=== PATIENT | female | born 1960 | race Caucasian/White ===

== ENCOUNTER 2016-11-04 14:27 | Emergency (ER) | payer BC ==
[~2016-11-04] VITALS: Ht 165.1 cm; Wt 70.3 kg
[~2016-11-04 14:27] MED LIST: ACETAMINOPHEN-H1 TA2 PO; ADVAIR 250/501 EA INH; ALBUTEROL2.5 MG/0.5 INH; ALPRAZOLAM0.5 M3 PO; AMBIEN10 M1 PO; CARDIZEM120 MG PO; CELEXA20 MG PO; CIPRO500 MG PO; CLONIDINE0.2 MG PO; COREG CR40 MG PO; COREG12.5 M1 PO; COZAAR100 MG PO; COZAAR25 MG PO; DELTASONE20 M1 PO; DIFLUCAN100 MG PO; DOXYCYCLINE100 M3 PO; DUONEB 3 MG/3 ML3 M1 INH; ECOTRIN325 MG PO; HYDR12.5C PO; HYDR25T PO; LISINOPRIL HCTZ1 TA1 PO; LOSARTAN POTASS50 M1 PO; LOVASTATIN20 MG PO; NATURE'S BLEND F1 MG PO; NORMODYNE,TRAN200 MG PO; NORVASC10 MG PO; PERCOCET 325 MG1 TA2 PO; PERCOCET 325 MG1 TA3 PO; PRAVASTATIN SOD20 MG PO; PREDNISONE10 MG PO; PULMICORT RESP0.5 M1 INH; RESTORIL15 MG PO; VICO75300 PO; VITAMIN D50000 I1 PO; VITAMIN D50000 I3 PO; XANAX0.5 MG PO; XANAX1 MG PO; ZANTAC150 MG PO; ZITHROMAX250 MG PO
[2016-11-04 14:34] VITALS: BP 160/134
[2016-11-04 15:08] LABS: BASO # 0.1 10*3/uL (0.0-0.1); BASO % 0.5 % (0.0-1.0); EOS # 0.2 10*3/uL (0.0-0.4); EOS % 1.9 % (1.0-4.0); HEMATOCRIT 49.3 % (37.0-47.0); LYMPH # 3.8 10*3/uL (1.3-4.4); LYMPH % 35.3 % (27.0-41.0); MEAN CELL VOLUME 88.8 fl (81.0-99.0); MEAN CORPUSCULAR HGB 30.6 pg (27.0-31.0); MEAN CORPUSCULAR HGB CONC 34.5 g/dl (33.0-37.0); MEAN PLATELET VOLUME 8.9 fl (9.6-12.3); MONO # 0.6 10*3/uL (0.1-1.0); MONO % 5.4 % (3.0-9.0); NEUT # 6.1 10*3/uL (2.3-7.9); NEUT % 56.5 % (47.0-73.0); PLATELET COUNT AUTOMATED 347 10*3/uL (130-400); RED BLOOD COUNT 5.55 10*6/uL (4.10-5.10); WHITE BLOOD COUNT 10.7 10*3/uL (4.8-10.8)
[2016-11-04 15:17] LABS: PROTHROMBIN TIME 10.5 SECONDS (9.0-12.4)
[2016-11-04 15:27] LABS: ALBUMIN 4.3 gm/dl (3.1-4.5); ALKALINE PHOSPHATASE 60 U/L (45-117); BILIRUBIN, TOTAL 0.4 mg/dl (0.2-1.0); BUN 7 mg/dl (7-24); CARBON DIOXIDE 24 mmol/L (21-32); CHLORIDE 107 mmol/L (98-107); EST GLOM FILT AFRICAN AMERICAN > 60 ml/min; GLUCOSE 70 mg/dL (65-99); POTASSIUM 4.3 mmol/L (3.5-5.1); SGOT/AST 22 IU/L (3-35); SGPT/ALT 20 U/L (12-78); SODIUM 141 mmol/L (136-145); TOTAL PROTEIN 8.3 gm/dL (6.4-8.2)
[2016-11-04 15:28] LABS: TROPONIN I < 0.015 ng/ml (<0.045)
== END 2016-11-04 17:21 | disposition home or self-care (01) ==
LOC: ED 14:27
PROVIDERS: Physician Assistant
DX: R07.89 Other chest pain (principal); M25.512 Pain in left shoulder; R51 Headache; R03.0 Elevated blood-pressure reading, without diagnosis of hypertension; F17.200 Nicotine dependence, unspecified, uncomplicated; Z90.49 Acquired absence of other specified parts of digestive tract; Z98.890 Other specified postprocedural states; Z79.899 Other long term (current) drug therapy; Z79.82 Long term (current) use of aspirin; Z88.8 Allergy status to other drugs, medicaments and biological substances; Z86.73 Personal history of transient ischemic attack (TIA), and cerebral infarction without residual deficits

== ENCOUNTER → 2017-04-13 | Outpatient (CLI) | payer BC ==
[2017-04-13 13:29] LABS: BUN 13 mg/dl (7-24); CHLORIDE 105 mmol/L (98-107); CREATININE 0.73 mg/dL (0.55-1.02); POTASSIUM 4.5 mmol/L (3.5-5.1); SODIUM 141 mmol/L (136-145)
== END | disposition home or self-care (01) ==
LOC: LAB 12:43
PROVIDERS: Obstetrics & Gynecology Gynecologic Oncology
DX: R10.84 Generalized abdominal pain (principal)

== ENCOUNTER 2017-06-05 12:04 | Inpatient (IN) | payer BC ==
[~2017-06-05] VITALS: Ht 165.1 cm; Wt 69.0 kg
--- NOTE | ~2017-06-05 | DS ---
[place], [place] DISCHARGE SUMMARY NAME: [id number] UNIT #: [id number] ROOM: 419 DOCTOR: LATONYA ZHAO MD BIRTHDATE: [birth year] DOS: 06/08/2017 DIAGNOSES: 1. Escherichia coli sepsis. 2. Urinary tract infection with Escherichia coli. 3. Acute hearing loss, will need an audiometric exam as an outpatient. 4. Benign hypertension. 5. Generalized anxiety disorder. 6. 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 7. Major depression, mild, recurrent. 8. Mixed hyperlipidemia. 9. Chronic back pain. 10. Continued nicotine abuse. 11. Primary insomnia. 12. Metabolic encephalopathy. 13. Hypokalemia. DISCHARGE MEDICATIONS: Clonidine 0.1 b.i.d., Coreg 25 b.i.d., amlodipine 5 daily, Zocor 5 daily, Cipro 500 b.i.d., folic acid 1 mg daily, aspirin 325 daily, vitamin D 50,000 once a week, Percocet 7.5 q.i.d., Ambien 10 at bedtime, omeprazole 20 b.i.d., Xanax 1 mg t.i.d. p.r.n. HOSPITAL COURSE: This patient is very well known to us, 57-year-old, comes in with complaints of change in mental status. Please refer to H and P for details. After admission, the patient was ordered urine culture, blood cultures and diagnosed with metabolic encephalopathy from an underlying UTI. She also had acute hearing loss. AudioScope examination of the ears did not show any pathology. The patient's urine culture and blood culture has grown E. coli, which is sensitive to the Rocephin and Levaquin that the patient is already on. The patient is overall stable and is not having any problems. She continues to have the hearing loss, but is able to ambulate without any difficulty and her mental status has improved and is back to the baseline. Labs all within normal limits, except for low potassium of 3.0 today for which the patient is going to receive K-Dur 40 mEq p.o. The patient is stable. I plan to discharge her to home today. A routine culture was ordered for June 08. We will have to wait as an outpatient to see what the culture results are. The patient does not want to stay in the hospital any longer, so we will await the results as an outpatient. [place], [place] DISCHARGE SUMMARY NAME: CECILE BRIZUELA UNIT #: [id number] ROOM: 419 DOCTOR: LATONYA ZHAO MD BIRTHDATE: [birth year] LATONYA ZHAO MD CM:DISCHARG [id number] LATONYA ZHAO MD 06/08/17909 interface
--- NOTE | ~2017-06-05 | PR ---
[place], [place] PROGRESS NOTE NAME: [id number] UNIT #: [id number] ROOM: 419 DOCTOR: LATONYA ZHAO MD BIRTHDATE: [birth year] DOS: 06/08/2017 SUBJECTIVE: The patient is feeling good, has not had any complaints. OBJECTIVE EXAMINATION: GENERAL: The patient is awake and alert and oriented. VITAL SIGNS: Blood pressure is 150/72, pulse of 60, respirations 18, temperature 97.6. LUNGS: Clear. HEART: Regular. ABDOMEN: Obese, soft, nontender. EXTREMITIES: Without any edema. ASSESSMENT AND PLAN: 1. E. coli urinary tract infection with sepsis, bacteremia also of E. coli. The patient is on appropriate antibiotics. Repeat cultures are pending. The patient is clinically stable. White cell count is normal. No fevers and encephalopathy has resolved. So, the plan is to discharge her to home today. Follow up as an outpatient. 2. Acute hearing loss, possibly from sepsis, which needs to be evaluated as an outpatient with audiometric exam. LATONYA ZHAO MD CM:PNTRANS [phone] LATONYA ZHAO MD 06/08/17 1206 interface
--- NOTE | ~2017-06-05 | PR ---
[place], [place] PROGRESS NOTE NAME: CECILE BRIZUELA UNIT #: [id number] ROOM: 419 DOCTOR: LATONYA ZHAO MD BIRTHDATE: [birth year] DOS: 06/07/2017 SUBJECTIVE: The patient is doing fine without any complaints this morning except for the hearing loss, which suddenly happened before the hospitalization. OBJECTIVE: VITAL SIGNS: Pressure is 164/62, pulse of 75, respirations 18, temperature 99.3. LUNGS: Diminished breath sounds. No wheezes, rales or rhonchi heard. HEART: Regular. ABDOMEN: Soft. EXTREMITIES: Without any edema. LABORATORY DATA: Blood cultures, anaerobic shows gram-negative bacilli. Urine culture shows heavy gram-negative bacteria, identification is not available. No other labs available this morning. ASSESSMENT AND PLAN: 1. Sepsis with bacteremia noted. We do need to finalize the antibiotic regimen this morning, add possibly Levaquin to the Rocephin. 2. Metabolic encephalopathy, possibly from the urinary tract infection and sepsis, which is resolved. 3. Benign hypertension, poorly controlled. Norvasc was added in addition to her other medications. 4. Acute hearing loss, unknown etiology. ENT examination was absolutely within normal limits, may require an audiometric exam as an outpatient. LATONYA ZHAO MD CM:PNTRANS 0811 [id number] LATONYA ZHAO MD 06/07/17 1101 interface
--- NOTE | ~2017-06-05 | WRIGHTHP ---
[place], [place] PATIENT HISTORY AND PHYSICAL EXAM NAME: CECILE BRIZUELA [facility] #: [id number] UNIT #: [id number] ROOM: 419 DOCTOR: LATONYA ZHAO MD BIRTHDATE: [birth year] DOS: 06/05/2017 HISTORY OF PRESENT ILLNESS: The patient is 57 years old. The patient was brought in by family members saying that she has been confused, which is a change in mental status. The patient denies having any chest pains, palpitations, shortness of breath. Does not have any fever or chills, does not have any abdominal pain, nausea, any emesis. She was brought to the emergency room where she was evaluated and was found to have UTI and acute kidney injury and was admitted. This morning, the patient is feeling good, does not have any complaints and wants to go home. She denies having any chest pains or palpitations. PAST MEDICAL HISTORY: 1. Generalized anxiety disorder. 2. Mild major depression. 3. Sertoli-Leydig cell tumor removed from the left ovary in February 2017. 4. Benign hypertension. 5. Mixed hyperlipidemia. 6. Chronic back pain. 7. Continued nicotine abuse. MEDICATIONS: The patient currently is on are Xanax 1 mg 3 times a day p.r.n., Elavil 50 at bedtime, aspirin 325 daily, Coreg 25 daily, clonidine 0.2 at bedtime, vitamin D 50,000 once a week, folic acid 1 mg daily, omeprazole 20 b.i.d., Percocet 1 tablet q.i.d. p.r.n., zolpidem 10 at bedtime. SOCIAL HISTORY: Smoker for about half a pack of cigarettes. Denies using any alcohol. Lives at home with her . She does not have any children. PHYSICAL EXAMINATION: GENERAL: The patient is awake and alert and oriented this morning. VITAL SIGNS: Graphic trend shows pressure 167/83, pulse of 86, respirations 20, temperature 98.0. LUNGS: Diminished breath sounds. No wheezes, rales, rhonchi heard. HEART: Regular. ABDOMEN: Obese, soft, nontender. EXTREMITIES: Without any edema. ASSESSMENT AND PLAN: 1. Acute kidney injury, possibly from underlying infection. 2. Metabolic encephalopathy, possibly from urinary tract infection. Urine culture is pending. IV antibiotics have been ordered. 3. Benign hypertension. Readjust antihypertensives to better control the blood pressure. 4. Chronic pain, on Percocet p.r.n. [place], [place] PATIENT HISTORY AND PHYSICAL EXAM NAME: CECILE BRIZUELA UNIT #: [id number] ROOM: [facility] DOCTOR: LATONYA ZHAO MD BIRTHDATE: [birth year] LATONYA ZHAO MD CM:HISPHYS:PATIENT HISTORY AND PHYSICAL EXAMINATION 0945 LATONYA ZHAO MD 06/06/17 1138 interface
--- NOTE | ~2017-06-05 | EKG ---
[place], [place] ELECTROCARDIOGRAM REPORT NAME: CECILE BRIZUELA UNIT #: [id number] ROOM: 419 DOCTOR: KRISS MC,ANGEL BIRTHDATE: [birth year] DOS: 06/05/2017 IMPRESSION: 1. Normal sinus rhythm. 2. Nonspecific ST-T changes. ANGEL MONTERROSO MD CM:EKGRPT:ELECTROCARDIOGRAM REPORT 1530 [id number] ANGEL OMNTERROSO MD
--- NOTE | ~2017-06-05 | CON ---
[place], [place] REPORT OF CONSULTATION NAME: CECILE BRIZUELA UNIT #: [id number] ROOM: 419 DOCTOR: GLORY CODY MD BIRTHDATE: [birth year] DOS: 06/06/2017 HISTORY OF PRESENT ILLNESS: This is a 57-year-old -[place] woman with a history of long-standing hypertension, which at times had not been controlled adequately. She had a couple of admissions in 2014 with uncontrolled hypertension. She has a modest degree of obesity, depression. She has never had any kidney problem previously and had no stroke, diabetes mellitus or heart failure or heart attack. She has had tonsillectomy, appendectomy, back surgery, hemorrhoidectomy and herniorrhaphy x 2. She smokes 1 pack of cigarettes per day. No alcohol use. Lives at home with her . She tells me that yesterday morning she was not feeling quite right and gave her raw eggs to eat, which did not really make sense. She was taken fishing by the family member hoping she will get better and there she felt somewhat tired and got into the truck and took a nap and she was not quite with it either. She has acute loss of hearing on the right side. There has not been any headache, dizziness, weakness, localized dysesthesia of the extremities. She did not pass out and there was no orthopnea or swelling in the lower extremities or chest pain. HOME MEDICATIONS: Include carvedilol 12.5 mg b.i.d., losartan 100 mg daily, amlodipine 10 mg daily, alprazolam 1 mg t.i.d. and Ambien 10 mg at night, oxycodone and hydrochlorothiazide p.r.n., pravastatin 40 mg daily and aspirin 325 mg daily. She also is on clonidine 0.2 mg at night. PHYSICAL EXAMINATION: GENERAL: This is a patient who has hirsutism. She is not anemic. There is no thyromegaly or finger clubbing. VITAL SIGNS: Pulse is regular at 86, blood pressure 167/83, this was the highest blood pressure, lowest was 119/62. NECK: JVP is normal. There is a very faint right carotid bruit and easily audible bruit on the left side. Carotid upstroke is normal. HEART: There is no cardiomegaly. Cardiac auscultation revealed no murmurs or rubs. Excellent pedal pulses and no edema in the lower extremities. RESPIRATORY: She is not tachypneic. Percussion note is normal. Auscultation reveals good breath sounds with hardly any adventitious sounds. ABDOMEN: Supple, nontender. No organomegaly or bruit. Bowel sounds are normal. DIAGNOSTIC STUDIES: An ECG done yesterday evening showed normal sinus rhythm at 90 beats per minute and a normal pattern. Monitor has shown not shown any dysrhythmias. Hemoglobin is 10.3 g/dL and on admission creatinine was 2.98, BUN 43, albumin was 3.0 and this morning creatinine has dropped to 1.62 and BUN 26. Chest x-ray was unremarkable. CT scan of the head did not demonstrate any acute abnormalities. IMPRESSION: [place], [place] REPORT OF CONSULTATION NAME: CECILE BRIZUELA UNIT #: [id number] ROOM: 419 DOCTOR: GLORY CODY MD BIRTHDATE: [birth year] 1. Hypertension. This is well controlled. 2. She did not have any chest pain. 3. She had acute confusional state from which she has recovered completely, but loss of hearing on the right side is of concern and probably a neurological event. 4. She has carotid bruits and I suspect some degree of carotid artery stenosis. 5. Hyperlipidemia back in 2011. She had total cholesterol 332, HDL of 28, triglycerides 580. RECOMMENDATIONS: 1. Carvedilol should be continued. I totally agree with discontinuing the losartan as it can affect renal failure. I believe she had been on hydrochlorothiazide in the past and that drug may not be a good idea either. Clonidine dose should be split to b.i.d. or t.i.d. because it is a very short acting drug. 2. I would be strongly in favor of checking her lipid profile and if her LDL is anything over 70, antilipid therapy should be manipulated. 3. Smoking needs to be discouraged seriously. 4. A carotid duplex study should be done and can be done as outpatient. I thank you for this consult. GLORY CODY MD CM:CONSTR:REPORT OF CONSULTATION 0949 06/06/17 1310 interface
--- NOTE | ~2017-06-05 | PR ---
[place], [place] PROGRESS NOTE NAME: CECILE BRIZUELA UNIT #: [id number] ROOM: 419 DOCTOR: CHARLENE BARRERA MD BIRTHDATE: [birth year] DOS: 06/08/2017 SUBJECTIVE: 24-hour events noted. Discussed with the nursing staff. I am covering for Dr. Lynne. The patient is comfortably sleeping now. OBJECTIVE: VITAL SIGNS: Hemodynamically stable. Blood pressure is much better 150/70. HEENT: Unremarkable. NECK: Supple, no JVD. LUNGS: Clear. HEART: Sounds are regular. NEUROLOGIC: Improving. LABORATORY DATA: Hemoglobin 12.5, hematocrit 36.9. Potassium is only 3. REVIEW OF SYSTEMS: Somewhat limited because of altered mental status. IMPRESSION: Mild hypertension, benign, poorly controlled; hearing loss, being worked up for metabolic encephalopathy, septicemia and bacteremia. RECOMMENDATIONS: Continue the present care. Monitor the blood pressure and heart rate closely. Continue the neurological workup and we will follow up. CHARLENE BARRERA MD CM:PNTRANS 0748 1304 CHARLENE BARRERA MD 06/08/17 1304 interface
[2017-06-05 12:12] VITALS: BP 150/63
[2017-06-05 12:21] VITALS: BP 128/70
[2017-06-05 12:29] LABS: BILIRUBIN NEGATIVE (NEGATIVE); BLOOD 2+ (NEGATIVE); CLARITY SL CLOUDY (CLEAR); COLOR YELLOW (YELLOW); GLUCOSE NEGATIVE (NEGATIVE); KETONE NEGATIVE (NEGATIVE); LEUKO ESTERASE 2+ (NEGATIVE); NITRITE POSITIVE (NEGATIVE); SPECIFIC GRAVITY 1.015 (1.005-1.030)
[2017-06-05 12:39] LABS: BACTERIA 2+; URINE AMPHETAMINES < 1000 (1000ng/ml); URINE BARBITURATES < 200 (200ng/ml); URINE BENZODIAZEPINES > 200 (200ng/ml); URINE CANNABINOIDS (THC) < 50 (50ng/ml); URINE COCAINE < 300 (300ng/ml); URINE METHADONE < 300 (300ng/ml); URINE OPIATES > 300 (300ng/ml); WBC 51-100 wbc/hpf (0-5)
[2017-06-05 12:41] LABS: URINE PHENCYCLIDINE < 25 (25ng/ml)
[2017-06-05 12:50] LABS: BASO % 0.1 % (0.0-1.0); EOS % 0.3 % (1.0-4.0); HEMATOCRIT 31.4 % (37.0-47.0); HEMOGLOBIN 10.3 g/dl (12.0-16.0); LYMPH # 0.7 10*3/uL (1.3-4.4); LYMPH % 8.9 % (27.0-41.0); MEAN CELL VOLUME 95.2 fl (81.0-99.0); MEAN CORPUSCULAR HGB 31.2 pg (27.0-31.0); MEAN CORPUSCULAR HGB CONC 32.8 g/dl (33.0-37.0); MEAN PLATELET VOLUME 9.8 fl (9.6-12.3); MONO # 0.4 10*3/uL (0.1-1.0); MONO % 4.9 % (3.0-9.0); NEUT # 6.6 10*3/uL (2.3-7.9); PLATELET COUNT AUTOMATED 214 10*3/uL (130-400); RED CELL DISTRI WIDTH 13.2 % (0-14.5); WHITE BLOOD COUNT 7.8 10*3/uL (4.8-10.8)
[2017-06-05 13:05] LABS: CREATININE 2.98 mg/dL (0.55-1.02); POTASSIUM 4.1 mmol/L (3.5-5.1); TOTAL PROTEIN 7.2 gm/dL (6.4-8.2)
[2017-06-05 13:40] VITALS: BP 121/65
[2017-06-05] MEDS ORDERED: COREG25 MG PO (14:25)
[2017-06-05] MEDS ORDERED: SENNA8.6 MG PO (14:26)
[2017-06-05] MEDS ORDERED: AMITRIPTYLINE50 MG PO (14:27)
[2017-06-05] MEDS ORDERED: PRILOSEC20 M1 PO (14:27)
[2017-06-05 14:45] VITALS: BP 119/62
--- NOTE | 2017-06-05 15:09 | NUR ---
[facility] , under the services of LATONYA Cates MD with a diagnosis of UTI. Chief complaint is HEARING LOSS/CONFUSION. Patient arrived via bed from ER. Monitor applied. Initial assessment completed. Vital signs taken and recorded. LATONYA CATES MD notified of admission to the unit. Orders received. See assessment for past medical history, medications and allergies. Patient and/or family oriented to unit. [facility] visitation policy reviewed. Clothing/patient valuable form completed. LEATHA MAST
--- NOTE | 2017-06-05 15:10 | NUR ---
PT STATED THAT SHE DID NOT HAVE THE FLU SHOT THIS SEASON DUE TO HER IMMUNE SYSTEM.
[2017-06-05] MEDS ORDERED: XANAX1 MG PO (15:19)
[2017-06-05 16:00] VITALS: BP 126/61
--- NOTE | 2017-06-05 18:54 | NUR ---
TYLENOL GIVEN FOR C/O HEADACHE. WILL MONITOR.
[2017-06-05 20:00] VITALS: BP 131/50
--- NOTE | 2017-06-05 22:21 | NUR ---
PRN TYLENOL GIVEN FOR PT REPORT 01/11 GENERALIZED BODY ACHES.
[2017-06-06] VITALS: BP 161/69
--- NOTE | 2017-06-06 00:10 | NUR ---
DR ZHAO CALLED FOR PT REPORT 01/11 CHEST PAIN. STAT TROPONIN ORDERED. SEE OTHER ORDERS.
--- NOTE | 2017-06-06 00:30 | NUR ---
DR ZHAO CALLED BACK TO REPORT PHARMACY WOULD NOT FILL TORODOL DUE TO PT RENAL FUNCTION. NEW ORDER RECEIVED FOR DILAUDID.
--- NOTE | 2017-06-06 00:54 | NUR ---
PRN PAIN MED GIVEN FOR 7/10 CHEST PAIN UNDER RIBS ON BOTH RIGHT AND LEFT CHEST, NON RADIATING. I DID WAKE PATIENT TO MEDICATE.
--- NOTE | 2017-06-06 01:54 | NUR ---
PRN PAIN MED APPEARS EFFECTIVE, PT IS SLEEPING, RESPIRATION EASY AND REG, HRR 81 PER CM.
--- NOTE | 2017-06-06 05:37 | NUR ---
PRN TYLENOL GIVEN FOR 8/10 HEADACHE AND ANTERIOR, HUMAIRA RIB PAIN.
--- NOTE | 2017-06-06 06:24 | NUR ---
CONSULT CALLED TO DR GLO DR REQUESTING EKG WHICH HAS ALREADY BEEN DONE.
[2017-06-06 06:29] LABS: ALBUMIN 2.5 gm/dl (3.1-4.5); CREATININE 1.62 mg/dL (0.55-1.02); TOTAL PROTEIN 6.6 gm/dL (6.4-8.2)
--- NOTE | 2017-06-06 06:40 | NUR ---
PRN PAIN MED EFFECTIVE, PT RATES HER PAIN 5/10 TO HEAD AND HUMAIRA RIBS.
[2017-06-06 08:00] VITALS: BP 167/83
[2017-06-06 12:00] VITALS: BP 177/77
[2017-06-06 16:00] VITALS: BP 184/74
[2017-06-06 20:00] VITALS: BP 170/75
--- NOTE | 2017-06-06 20:24 | NUR ---
prn pain med given for pt report 5/10 headache.
--- NOTE | 2017-06-06 21:07 | NUR ---
DR ZHAO CALLED FOR BP OF 210/100. RECEIVED ORDER FOR 10 MG NORVASC NOW.
--- NOTE | 2017-06-06 21:23 | NUR ---
PRN PAIN MED EFFECTIVE PT RATED HER PAIN 3/10 TO HEADACHE.
--- NOTE | 2017-06-06 22:07 | NUR ---
PRN BLOOD PRESSURE EFFECTIVE , PT BP IS 170/75.
[2017-06-07] VITALS: BP 164/62
--- NOTE | 2017-06-07 | NUR ---
REPEAT BP IS 164/62, PT IS RESTING COMFORTABLY.
--- NOTE | 2017-06-07 01:00 | NUR ---
RECEIVED PHONE CALL FROM LAB REPORTING POS BLOOD CULTURES GRAM NEG BACILLUS. DR ZHAO NOTIFIED. NO NEW ORDERS.
--- NOTE | 2017-06-07 02:39 | NUR ---
PRN PAIN MED GIVEN FOR PT REPORT 7/10 HEADACHE.
--- NOTE | 2017-06-07 03:40 | NUR ---
PRN PAIN MED EFFECTIVE, PT RATES PAIN 4/10 TO HEADACHE.
[2017-06-07 04:00] VITALS: BP 164/62
--- NOTE | 2017-06-07 06:55 | NUR ---
PT BLOOD PRESSURE BACK UP TO 182/90. 0800 COREG DOSE GIVEN NOW.
[2017-06-07 08:00] VITALS: BP 132/56
--- NOTE | 2017-06-07 08:30 | NUR ---
Dealer Compliance Representative in to talk to patient. Patient states lives at HOME with HER . There are 12 steps in the home. Physician: DR ZHAO [facility] NONE Patient's level of ADLs: INDEPENDENT Patient has working utilities: YES DME: NONE Follow-up physician's appointment after d/c: PREFERS TO MAKE HER OWN APPT Does patient want to access PORTAL?: Discharge plan . HOME [facility]TE MOYA
[2017-06-07 12:00] VITALS: BP 132/72
[2017-06-07 16:00] VITALS: BP 147/67
--- NOTE | 2017-06-07 17:41 | NUR ---
XANAX GIVEN FOR C/O ANXIETY. WILL MONITOR.
--- NOTE | 2017-06-07 18:39 | NUR ---
XANAX EFFECTIVE PER PT.
[2017-06-07 20:00] VITALS: BP 156/65
--- NOTE | 2017-06-07 20:00 | NUR ---
ASSUMED CARE OF PATIENT. ASSESSMENT COMPLETE. RESTING IN BED. NO COMPLAINTS AT THIS TIME. CALL LIGHT IN REACH. WILL CONTINUE TO MONITOR.
--- NOTE | 2017-06-07 21:59 | NUR ---
MEDICATED WITH PRN TYLENOL FOR C/O HEADACHE. RATES 02/11. WILL MONITOR FOR EFFECTIVENESS.
[2017-06-08] VITALS: BP 137/66
--- NOTE | 2017-06-08 00:20 | NUR ---
PT STATES EARLIER TYLENOL NOT EFFECTIVE FOR RELIEF OF HEADACHE. STILL RATES HEADACHE 02/11. MEDICATED AT THIS TIME WITH PRN PERCOCET. WILL MONITOR FOR EFFECTIVENESS
--- NOTE | 2017-06-08 02:00 | NUR ---
SLEEPING. RESP EASY AND NONLABORED ON ROOM AIR. NO SIGNS OF DISTRESS NOTED. CALL LIGHT IN REACH. WILL CONTINUE TO MONITOR.
--- NOTE | 2017-06-08 06:38 | NUR ---
CALLED AND MADE DR JI AWARE OF BLOOD CULTURES POSITIVE FOR ECOLI. NO NEW ORDERS RECEIVED
[2017-06-08 06:43] LABS: HEMATOCRIT 36.9 % (37.0-47.0); HEMOGLOBIN 12.5 g/dl (12.0-16.0); MEAN CELL VOLUME 89.1 fl (81.0-99.0); MEAN CORPUSCULAR HGB 30.2 pg (27.0-31.0); MEAN CORPUSCULAR HGB CONC 33.9 g/dl (33.0-37.0); MEAN PLATELET VOLUME 9.4 fl (9.6-12.3); PLATELET COUNT AUTOMATED 298 10*3/uL (130-400); RED BLOOD COUNT 4.14 10*6/uL (4.10-5.10); RED CELL DISTRI WIDTH 12.6 % (0-14.5); WHITE BLOOD COUNT 10.2 10*3/uL (4.8-10.8)
[2017-06-08 06:55] LABS: BUN 17 mg/dl (7-24); CHLORIDE 107 mmol/L (98-107); CREATININE 0.92 mg/dL (0.55-1.02); SODIUM 144 mmol/L (136-145)
--- NOTE | 2017-06-08 07:30 | NUR ---
PT AWAKE, ALERT, ORIENTED. VSS. CALL LIGHT IN REACH, NO COMPLAINTS NOTED AT THIS TIME.
[2017-06-08 07:33] VITALS: BP 150/72
[2017-06-08 07:43] LABS: ATYPICAL LYMPHS 7 % (0-0); BASOPHILS 2 % (0-1); PLATELET SUFFICIENCY NORMAL (NORMAL); TOTAL CELLS COUNTED 100 #CELLS
--- NOTE | 2017-06-08 08:00 | NUR ---
PT IS AWAKE AND ALERT. NO COMPLAINTS AT THIS TIME AND DENIES PAIN. PT STATES SHE IS [place] AND THIS IS NEW SINCE THE CHANGE IN MENTAL STATUS. ROBERT DUMONT.JDRCC
--- NOTE | 2017-06-08 08:00 | NUR ---
DR BARRERA IN TO SEE PATIENT
--- NOTE | 2017-06-08 08:00 | NUR ---
PATIENT SITTING UP IN BED WAITING FOR BREAKFAST. NO COMPLAINTS OF PAIN OR DISCOMFORT AT THIS TIME. ALERT AND ORIENTED, MAKES INAPPROPRIATE STATEMENTS AT TIMES. TEETEE JONES.JDRCC
--- NOTE | 2017-06-08 08:24 | NUR ---
DR ZHAO IN TO SEE PATIENT.
[2017-06-08] MEDS ORDERED: 'CLONIDINE0.1 MG PO (08:26)
[2017-06-08] MEDS ORDERED: AMLODIPINE BESYL5 MG PO (08:26)
[2017-06-08] MEDS ORDERED: CARVEDILOL25 MG PO (08:26)
[2017-06-08] MEDS ORDERED: ZOCOR5 MG PO (08:26)
[2017-06-08] MEDS ORDERED: CIPRO500 MG PO (08:26)
[2017-06-08] MEDS ORDERED: K-TAB10 MEQ PO (08:50)
--- NOTE | 2017-06-08 09:00 | NUR ---
PT REFUSED IV ANTIOBIOTIC AND NICODERM PATCH. DC'D IV IN RIGHT HAND. SITE IS ASMYMPTOMATIC, IV CATHETER INTACT. NO COMPLAINTS AT THIS TIME. ROBERT DUMONT.JDRCC
--- NOTE | 2017-06-08 10:00 | NUR ---
PATIENT BATHED AND IS NOW RESTING IN BED. PATIENT HAD A SMALL BOWEL MOVEMENT. NO COMPLAINTS OF PAIN AT THIS TIME. PATIENT IS PREPPING FOR CT SCAN. TEETEE JONES.ELIJAHCC
--- NOTE | 2017-06-08 10:15 | NUR ---
DISCHARGE INSTRUCTION GIVEN. PT VERBALIZED UNDERSTANDING. STABLE WITH NO VOICED C/O AT HTIS TIME. DISCHARGE TO HOME VIA W/C WITH FRIEND.
== END 2017-06-08 10:15 | disposition home or self-care (01) | DRG 871 ==
LOC: ED 12:04 → EDHOLD 14:00 → 4E 14:00
PROVIDERS: Emergency Medicine; ADMIT Internal Medicine
DX: A41.51 Sepsis due to Escherichia coli [E. coli] (principal); G93.41 Metabolic encephalopathy; N17.9 Acute kidney failure, unspecified; N39.0 Urinary tract infection, site not specified; F33.0 Major depressive disorder, recurrent, mild; I10 Essential (primary) hypertension; B96.20 Unspecified Escherichia coli [E. coli] as the cause of diseases classified elsewhere; H91.90 Unspecified hearing loss, unspecified ear; F41.1 Generalized anxiety disorder; E78.2 Mixed hyperlipidemia; G89.29 Other chronic pain; M54.9 Dorsalgia, unspecified; G47.00 Insomnia, unspecified; F51.01 Primary insomnia; E87.6 Hypokalemia; F17.210 Nicotine dependence, cigarettes, uncomplicated; E66.9 Obesity, unspecified; Z79.899 Other long term (current) drug therapy; Z83.3 Family history of diabetes mellitus; Z88.8 Allergy status to other drugs, medicaments and biological substances; Z80.9 Family history of malignant neoplasm, unspecified; Z68.25 Body mass index [BMI] 25.0-25.9, adult

== ENCOUNTER → 2017-06-21 | Outpatient (CLI) | payer BC ==
[~2017-06-21] MED LIST changes: +'CLONIDINE0.1 MG PO; +AMITRIPTYLINE50 MG PO; +AMLODIPINE BESYL5 MG PO; +CARVEDILOL25 MG PO; +COREG25 MG PO; +K-TAB10 MEQ PO; +PRILOSEC20 M1 PO; +SENNA8.6 MG PO; +ZOCOR5 MG PO
== END | disposition home or self-care (01) ==
LOC: LAB 12:38
DX: A41.9 Sepsis, unspecified organism (principal)

== ENCOUNTER → 2018-06-15 | Outpatient (CLI) | payer BC ==
[2018-06-15 09:55] LABS: ALBUMIN 3.5 gm/dl (3.1-4.5); ALKALINE PHOSPHATASE 85 U/L (45-117); BILIRUBIN, DIRECT < 0.1 mg/dL (0.0-0.2); SGOT/AST 11 IU/L (3-35); SGPT/ALT 18 U/L (12-78); TOTAL PROTEIN 7.7 gm/dL (6.4-8.2)
== END | disposition home or self-care (01) ==
LOC: US 07:30 → LAB 07:40
PROVIDERS: Internal Medicine
DX: R06.6 Hiccough (principal)

== ENCOUNTER 2018-07-06 14:04 | Inpatient (IN) | payer BC ==
--- NOTE | ~2018-07-06 | PR ---
[place], [place] PROGRESS NOTE NAME: CECILE BRIZUELA UNIT #: [id number] ROOM: 416 DOCTOR: LATONYA ZHAO MD BIRTHDATE: [birth year] DOS: SUBJECTIVE: The patient is doing a little better, does not have any new complaints. She still has a moist sounding cough. OBJECTIVE: VITAL SIGNS: Blood pressure is 153/89, pulse of 74, respirations 20, and temperature 97.2. LUNGS: Diminished breath sounds, few scattered rales and wheezes heard, which is much improved since admission. HEART: Regular. ABDOMEN: Obese, soft. EXTREMITIES: Without any edema. ASSESSMENT AND PLAN: 1. Bilateral pneumonia, on IV antibiotics. 2. Mycoplasma positive on Levaquin. 3. Extended-spectrum beta-lactamase urinary tract infection, on Zosyn. 4. Elevated white cell count, partly related to steroid effect, it was coming down and then came down to 13,000, went up most likely because steroids causing it. 5. Benign hypertension, controlled. LATONYA ZHAO MD CM:PNTRANS 0733 LATONYA ZHAO MD 07/10/18 0207 interface
--- NOTE | ~2018-07-06 | DS ---
[place], [place] DISCHARGE SUMMARY NAME: CECILE BRIZUELA UNIT #: [id number] ROOM: 416 DOCTOR: LATONYA ZHAO MD BIRTHDATE: [birth year] DOS: 07/11/2018 DISCHARGE DIAGNOSES: 1. Mycoplasma pneumonia. 2. Extended-spectrum beta-lactamase urinary tract infection. 3. Benign hypertension. 4. Moderate cigarette smoker. 5. Hypoxic respiratory failure. 6. Generalized anxiety disorder. 7. Chronic low back pain from spinal stenosis. 8. Hard of hearing, hearing loss following a sepsis admission 2 years ago. 9. Mixed hyperlipidemia. MEDICATIONS ON DISCHARGE: Levaquin 750 daily for 5 days, Bactrim-DS twice daily for 7 days, prednisone tapering dose, breathing treatments of DuoNeb q. 6. HOSPITAL COURSE: The patient is 58 years old, very well known to us, comes in with complaints of cough and shortness of breath. She was hypoxic with a room air saturation of 70%. After being evaluated in the office, she was admitted with acute hypoxic respiratory failure and possible pneumonia. White cell count was elevated at 17,000. BMP showed the elevated CRP and ESR. So CT of the chest was done, which showed small patchy areas of ground glass density throughout the lung [place] with pneumonitis. Mycoplasma legionella titers were ordered. The mycoplasma titers have come back elevated, we will repeat that as an outpatient to make sure it is trending down. Echocardiogram was done, which showed no pathology. Urine culture showed ESBL, antibiotic adjustments were made and the patient is slowly improving. The white cell count did go up after starting to trend down, this most likely was steroid effect. Sputum culture shows light yeast. The patient is overall stable and improved and ambulating and the hypoxia has corrected. The white cell count has finally come down to 17,000. The plan is therefore to discharge her to home today. Follow up as an outpatient. We will repeat a chest x-ray, urine culture as an outpatient. DISCHARGE MEDICATIONS: Ipratropium q. 6 hours p.r.n., Xanax has been cut down to 0.5 t.i.d. p.r.n., folic acid 1 mg daily, Prilosec 20 b.i.d., carvedilol 25 b.i.d., amlodipine 5 daily, Zocor 5 at bedtime, potassium 10 daily, oxycodone 10 q.i.d., Elavil 50 at bedtime, and clonidine 0.2 daily. [place], [place] DISCHARGE SUMMARY NAME: CECILE BRIZUELA UNIT #: [id number] ROOM: [facility] DOCTOR: LATONYA ZHAO MD BIRTHDATE: [birth year] LATONYA ZHAO MD CM:DISCHARG 0822 LATONYA ZHAO MD 07/11/18 0926 interface
--- NOTE | ~2018-07-06 | PR ---
[place], [place] PROGRESS NOTE NAME: CECILE BRIZUELA UNIT #: [id number] ROOM: 416 DOCTOR: LATONYA ZHAO MD BIRTHDATE: [birth year] DOS: 07/08/2018 SUBJECTIVE: The patient is doing better. Does not have any new complaints. Graphic trend shows blood pressure 125/61, but she is still short of breath and has a moist sounding cough. PHYSICAL EXAMINATION: GENERAL: She is awake and alert and oriented. VITAL SIGNS: Blood pressure is 125/61, pulse of 66, respirations 18, temperature 97.6. LUNGS: Diminished breath sounds. Scattered rales bilaterally. HEART: Regular. ABDOMEN: Obese. EXTREMITIES: Without any edema. LABORATORY DATA: CT of the chest shows patchy areas of consolidation. Rapid flu is negative. Mycoplasma pneumonia antibody and IgG is positive. Echocardiogram shows normal LV function with ejection fraction of 60-65%. Basic metabolic panel: Glucose 180, BUN 17, creatinine 1.01. Electrolytes normal. Urine culture shows 25,000 colonies of ESBL. ASSESSMENT AND PLAN: 1. Hypoxic respiratory failure, improving. She is off the oxygen. 2. Chronic obstructive pulmonary disease with continued nicotine abuse. Cut back on the steroids. 3. Pneumonia, bilateral, on IV antibiotics. 4. Extended spectrum beta-lactamases urinary tract infection, readjust the medicines and contact isolation to be followed. 5. Hyperglycemia. Check blood sugars twice daily, coverage scale ordered. LATONYA ZHAO MD [place], [place] PROGRESS NOTE NAME: CECILE BRIZUELA UNIT #: [id number] ROOM: 416 DOCTOR: LATONYA ZHAO MD BIRTHDATE: [birth year] SHOSHANA MADSEN MD CM:PNTRANS [phone] LATONYA ZHAO MD 07/19/18 1042 interface
--- NOTE | ~2018-07-06 | PR ---
[place], [place] PROGRESS NOTE [id number] UNIT #: [id number] ROOM: 416 DOCTOR: LATONYA ZHAO MD BIRTHDATE: [birth year] DOS: 07/10/2018 SUBJECTIVE: The patient is sitting up in her bed, breathing much better this morning. OBJECTIVE: VITAL SIGNS: Blood pressure is 117/67, pulse of 69, respirations 18, temperature 97.2. LUNGS: Diminished breath sounds. Scattered rales heard bilaterally. HEART: Regular. ABDOMEN: Obese, soft, nontender. EXTREMITIES: Without any edema. LABORATORY DATA: Sputum culture shows normal roger with light yeast. BMP: Glucose 107, BUN 19, creatinine 0.86, sodium 143, potassium 3.9, chloride 110. WBC count is 21.8, neutrophils 73, lymphocytes 14, metamyelocytes 1, myelocyte 6. ASSESSMENT AND PLAN: 1. Mycoplasma pneumoniae, on IV antibiotics. 2. Respiratory failure, which is improving. Her oxygenation has improved and she is coughing less, would not need oxygen for home. 3. Moderate cigarette smoker. Counseling given. 4. Elevated white cell count, possibly steroid effect. It is slowly coming down. 5. Chronic obstructive pulmonary disease exacerbation, on IV steroids. We will taper it down. 6. ESBL urinary tract infection, on antibiotics. Plan hopefully is to discharge tomorrow if the white cell count is further down. LATONYA ZHAO MD CM:PNTRANS [phone] LATONYA ZHAO MD 07/11/18 0133 interface
--- NOTE | ~2018-07-06 | PR ---
[place], [place] PROGRESS NOTE NAME: CECILE BRIZUELA UNIT #: [id number] ROOM: 416 DOCTOR: LATONYA ZHAO MD BIRTHDATE: [birth year] DOS: 07/11/2018 SUBJECTIVE: The patient is doing well, does not have any new complaints. OBJECTIVE: VITAL SIGNS: Blood pressure is 168/76, pulse of 62, respirations 20, temperature 97.2. LUNGS: Clear. HEART: Regular. ABDOMEN: Soft, scaphoid. EXTREMITIES: Without any edema. ASSESSMENT AND PLAN: 1. Bilateral pneumonia with mycoplasma positivity. The patient has been on antibiotics and is stable and improving clinically. 2. Hypoxic respiratory failure, which is resolved. 3. Extended-spectrum beta-lactamase Escherichia coli, was on antibiotics. Repeat cultures after the completion of antibiotics. The patient is stable and can be discharged to home today. LATONYA ZHAO MD CM:PNTRANS [phone] LATONYA ZHAO MD 07/11/18 1045 interface
--- NOTE | ~2018-07-06 | WRIGHTHP ---
[place], [place] PATIENT HISTORY AND PHYSICAL EXAM NAME: CECILE BRIZUELA [facility] #: [id number] UNIT #: [id number] ROOM: 416 DOCTOR: LATONYA ZHAO MD BIRTHDATE: [birth year] DOS: 07/06/2018 HISTORY OF PRESENT ILLNESS: The patient is 58 years old, very well known to us, comes into the office with complaints of increasing shortness of breath, cough and a low-grade fever. She was hypoxic on room air with a saturation of 88% and on exam diagnosed with right upper lobe pneumonia was admitted. The patient this morning feels better, but does continues to have a low-grade fever and shortness of breath and cough. She denies having any chest pains or palpitations. PAST MEDICAL HISTORY: Significant for: 1. History of E. coli sepsis 2016. 2. Hearing loss from sepsis. 3. Hypertension. 4. Generalized anxiety disorder. 5. 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 6. Major depression, mild, recurrent. 7. Chronic low back pain. 8. Mixed hyperlipidemia. 9. Moderate cigarette smoker. 10. Primary insomnia. 11. Generalized anxiety disorder. MEDICATIONS ON ADMISSION: Xanax 0.1 mg 3 times a day p.r.n., Elavil 50 at bedtime, amlodipine 5 mg daily, Coreg 25 twice a day, clonidine 0.2 daily, folic acid 1 mg daily, omeprazole 20 b.i.d., oxycodone 10 q.i.d., potassium 10 daily, simvastatin 5 mg at bedtime, trazodone 50 at bedtime. SOCIAL HISTORY: Smoker of half to 1 pack of cigarettes a day. Denies using any alcohol. PHYSICAL EXAMINATION: GENERAL: She is awake and alert and oriented. VITAL SIGNS: Graphic trend shows a temperature of 101.0, pulse of 80-90, respirations 24, blood pressure 110/60. LUNGS: Diminished breath sounds, scattered wheezes and rales, more on the right upper lung [place]. HEART: Tachycardic. ABDOMEN: Soft, scaphoid. EXTREMITIES: Without any edema. ASSESSMENT AND PLAN: 1. The patient admitted with fever, cough, shortness of breath, elevated white cell count, tachypnea and hypoxemia, diagnosed with acute hypoxic respiratory failure and underlying pneumonia. The patient has been ordered a chest x-ray, which did not show any pathology, so CT of the chest will be ordered this morning. She was placed on IV antibiotics, breathing treatments, oxygen supplementation. Sputum cultures, legionella and mycoplasma studies have also ordered. 2. Benign hypertension, controlled. [place], [place] PATIENT HISTORY AND PHYSICAL EXAM NAME: CECILE BRIZUELA UNIT #: [id number] ROOM: [facility] DOCTOR: LATONYA ZHAO MD BIRTHDATE: [birth year] 3. Generalized anxiety disorder, cut back on the Xanax dosage. LATONYA ZHAO MD CM:HISPHYS:PATIENT HISTORY AND PHYSICAL EXAMINATION [id number] LATONYA ZHAO MD 07/19/18 1415 interface
[2018-07-06 13:30] VITALS: BP 139/77
--- NOTE | 2018-07-06 14:20 | NUR ---
A 58, admitted to , under the services of LATONYA Cates MD with a diagnosis of RESP FAILURE, PNEUMONIA. Chief complaint is RESP FAILURE, PNEUMONIA. Patient arrived via wheel chair from [place]. Monitor applied. Initial assessment completed. Vital signs taken and recorded. LATONYA CATES MD notified of admission to the unit. Orders received. See assessment for past medical history, medications and allergies. Patient and/or family oriented to unit. [facility] visitation policy reviewed. Clothing/patient valuable form completed. DICK CANO
[2018-07-06] MEDS ORDERED: OXYCODONE HCL10 M1 PO (15:20)
[2018-07-06] MEDS ORDERED: AMITRIPTYLINE50 MG PO (15:21)
[2018-07-06] MEDS ORDERED: TRAZODONE50 MG PO (15:22)
[2018-07-06] MEDS ORDERED: CLONIDINE0.2 MG PO (15:23)
[2018-07-06 16:00] VITALS: BP 145/76
[2018-07-06 16:17] LABS: BASO % 0.2 % (0.0-1.0); EOS % 0.1 % (1.0-4.0); HEMATOCRIT 38.6 % (37.0-47.0); HEMOGLOBIN 12.9 g/dl (12.0-16.0); LYMPH # 2.5 10*3/uL (1.3-4.4); LYMPH % 14.1 % (27.0-41.0); MEAN CELL VOLUME 92.1 fl (81.0-99.0); MEAN CORPUSCULAR HGB 30.8 pg (27.0-31.0); MEAN CORPUSCULAR HGB CONC 33.4 g/dl (33.0-37.0); MEAN PLATELET VOLUME 8.8 fl (9.6-12.3); MONO % 5.4 % (3.0-9.0); NEUT % 79.9 % (47.0-73.0); PLATELET COUNT AUTOMATED 284 10*3/uL (130-400); RED BLOOD COUNT 4.19 10*6/uL (4.10-5.10); RED CELL DISTRI WIDTH 13.2 % (0-14.5); WHITE BLOOD COUNT 17.5 10*3/uL (4.8-10.8)
[2018-07-06 16:45] LABS: BUN 10 mg/dl (7-24); CHLORIDE 105 mmol/L (98-107); CREATININE 1.09 mg/dL (0.55-1.02); POTASSIUM 3.5 mmol/L (3.5-5.1); SODIUM 138 mmol/L (136-145)
--- NOTE | 2018-07-06 16:54 | NUR ---
TYLENOL GIVEN AT THIS TIME FOR TEMP 103.7
[2018-07-06 20:00] VITALS: BP 103/57
[2018-07-07] VITALS: BP 104/55
[2018-07-07 08:00] VITALS: BP 120/78
[2018-07-07 08:47] LABS: BASO % 0.2 % (0.0-1.0); EOS # 0.2 10*3/uL (0.0-0.4); EOS % 1.2 % (1.0-4.0); HEMATOCRIT 36.4 % (37.0-47.0); HEMOGLOBIN 12.2 g/dl (12.0-16.0); LYMPH # 2.3 10*3/uL (1.3-4.4); LYMPH % 16.5 % (27.0-41.0); MEAN CELL VOLUME 91.9 fl (81.0-99.0); MEAN CORPUSCULAR HGB 30.8 pg (27.0-31.0); MEAN CORPUSCULAR HGB CONC 33.5 g/dl (33.0-37.0); MEAN PLATELET VOLUME 8.6 fl (9.6-12.3); MONO # 0.6 10*3/uL (0.1-1.0); MONO % 4.6 % (3.0-9.0); NEUT # 10.6 10*3/uL (2.3-7.9); NEUT % 77.2 % (47.0-73.0); PLATELET COUNT AUTOMATED 294 10*3/uL (130-400); RED BLOOD COUNT 3.96 10*6/uL (4.10-5.10); RED CELL DISTRI WIDTH 13.2 % (0-14.5); WHITE BLOOD COUNT 13.8 10*3/uL (4.8-10.8)
--- NOTE | 2018-07-07 09:00 | NUR ---
Project Geophysicist in to see patient. She is currently not in her room. Will follow up at a later time.
[2018-07-07 12:00] VITALS: BP 93/75
[2018-07-07 14:04] LABS: MYCOPLASMA PNEUMONIAE IGG 367 U/mL (0-99); MYCOPLASMA PNEUMONIAE IGM <770 U/mL (0-769)
--- NOTE | 2018-07-07 14:40 | NUR ---
Painting Machine Operator in to talk to patient. Patient states lives at home with her . There are 5 steps in the home. Physician: Dr. Belinda Arias [facility] Home health services: none Patient's level of ADLs: INDEPENDENT Patient has working utilities: yes DME: nebulizer Follow-up physician's appointment after d/c: she prefers to make her own follow up appt after discharge Does patient want to access PORTAL?: no Discharge plan discussed with patient. She lives at home with her . She is independent in her ADLs and ambulation. Discussed home health care services and she denies any home needs at this time. When medically stable she will be discharged to home. MASON DANIELS
[2018-07-07 15:49] VITALS: BP 112/64
[2018-07-07 20:00] VITALS: BP 121/62
[2018-07-08] VITALS: BP 125/61
[2018-07-08 05:49] LABS: BUN 17 mg/dl (7-24); CHLORIDE 112 mmol/L (98-107); CREATININE 1.01 mg/dL (0.55-1.02); POTASSIUM 4.1 mmol/L (3.5-5.1); SODIUM 143 mmol/L (136-145)
--- NOTE | 2018-07-08 09:00 | NUR ---
Channel Specialist in to see patient. No new needs or request at this time. She denies any home needs. When medically stable she will be discharged to home.
[2018-07-08 12:00] VITALS: BP 146/69
[2018-07-08 16:00] VITALS: BP 151/70
--- NOTE | 2018-07-08 18:53 | NUR ---
PT AMBULATORY IN HURST AT THIS TIME, WALKING WITH EASE. NO SXS OF DISTRESS NOTED. RESPERS EASY, REGULAR.
[2018-07-08 20:00] VITALS: BP 136/80
--- NOTE | 2018-07-08 20:15 | NUR ---
AAOX3 SITTING UP IN BED. SKIN WARM & DRY. HEP LOCK INTACT TO RIGHT ARM/LEFT ANTECUBITAL; SITES ASYMPTOMATIC. LUNGS VERY DIMINISHED BILATERALLY & RHONCHI; NO COUGH NOTED AT THIS TIME. PT. VOICES NO C/O. CALL LIGHT WITHIN REACH.
--- NOTE | 2018-07-08 21:37 | NUR ---
MEDICATED WITH XANAX PER PT'S REQUEST.
[2018-07-09] VITALS: BP 153/89
--- NOTE | 2018-07-09 01:00 | NUR ---
RESTING IN BED WITH EYES CLOSED; AROUSES EASILY. STATES XANAX GIVEN EARLIER SOMEWHAT EFFECTIVE. NO DISTRESS NOTED. CALL LIGHT WITHIN REACH.
[2018-07-09 05:52] LABS: BUN 15 mg/dl (7-24); CHLORIDE 116 mmol/L (98-107); CREATININE 0.85 mg/dL (0.55-1.02); POTASSIUM 3.9 mmol/L (3.5-5.1); SODIUM 145 mmol/L (136-145)
[2018-07-09 05:58] LABS: HEMOGLOBIN 11.9 g/dl (12.0-16.0); MEAN CELL VOLUME 90.5 fl (81.0-99.0); MEAN CORPUSCULAR HGB 29.9 pg (27.0-31.0); MEAN CORPUSCULAR HGB CONC 33.1 g/dl (33.0-37.0); MEAN PLATELET VOLUME 9.1 fl (9.6-12.3); PLATELET COUNT AUTOMATED 358 10*3/uL (130-400); RED BLOOD COUNT 3.98 10*6/uL (4.10-5.10); RED CELL DISTRI WIDTH 13.1 % (0-14.5); WHITE BLOOD COUNT 21.8 10*3/uL (4.8-10.8)
--- NOTE | 2018-07-09 06:00 | NUR ---
PT. AROUSES EASILY TO TAKE MEDICATIONS. VOICES NO C/O AT THIS TIME. CALL LIGHT WITHIN REACH.
[2018-07-09 07:13] LABS: ATYPICAL LYMPHS 1 % (0-0); TOTAL CELLS COUNTED 100 #CELLS
[2018-07-09 07:14] LABS: PLATELET SUFFICIENCY NORMAL (NORMAL)
[2018-07-09 12:25] VITALS: BP 142/82
--- NOTE | 2018-07-09 12:29 | NUR ---
OXY-IR GIVEN FOR C/O GEN. DISCOMFORT. WILL MONITOR.
--- NOTE | 2018-07-09 13:30 | NUR ---
OXY-IR EFFECTIVE PER PT.
[2018-07-09 17:10] VITALS: BP 130/75
[2018-07-09 20:00] VITALS: BP 150/87
--- NOTE | 2018-07-09 22:12 | NUR ---
MEDICATED WITH XANAX PER PT'S REQUEST/M.D. ORDERS.
[2018-07-10] VITALS: BP 166/85
--- NOTE | 2018-07-10 | NUR ---
RESTING IN BED WITH EYES CLOSED. XANAX GIVEN EARLIER APPARENTLY EFFECTIVE.
[2018-07-10 05:58] LABS: HEMATOCRIT 39.2 % (37.0-47.0); HEMOGLOBIN 12.9 g/dl (12.0-16.0); MEAN CELL VOLUME 92.2 fl (81.0-99.0); MEAN CORPUSCULAR HGB 30.4 pg (27.0-31.0); MEAN CORPUSCULAR HGB CONC 32.9 g/dl (33.0-37.0); PLATELET COUNT AUTOMATED 407 10*3/uL (130-400); RED BLOOD COUNT 4.25 10*6/uL (4.10-5.10); RED CELL DISTRI WIDTH 13.2 % (0-14.5); WHITE BLOOD COUNT 21.8 10*3/uL (4.8-10.8)
--- NOTE | 2018-07-10 06:00 | NUR ---
BLOOD SUGAR 121.
[2018-07-10 06:17] LABS: BUN 19 mg/dl (7-24); CHLORIDE 110 mmol/L (98-107); CREATININE 0.86 mg/dL (0.55-1.02); POTASSIUM 3.9 mmol/L (3.5-5.1); SODIUM 143 mmol/L (136-145)
[2018-07-10 06:25] LABS: TOTAL CELLS COUNTED 100 #CELLS
[2018-07-10 06:26] LABS: BURR CELLS FEW; PLATELET SUFFICIENCY NORMAL (NORMAL)
[2018-07-10 08:00] VITALS: BP 166/84
--- NOTE | 2018-07-10 09:00 | NUR ---
PT RESTING IN BED. EYES OPEN. NO DISTRESS NOTED. WILL MONITOR
[2018-07-10 12:00] VITALS: BP 117/67
[2018-07-10 16:00] VITALS: BP 126/73
--- NOTE | 2018-07-10 16:15 | NUR ---
pt requested and given oxy ir for c/o gen pain/ pt rates pain 01/11/ will monitor
--- NOTE | 2018-07-10 18:26 | NUR ---
pt states that oxy ir helped will monitor
[2018-07-11] VITALS: BP 168/76
[2018-07-11 06:43] LABS: HEMATOCRIT 41.7 % (37.0-47.0); HEMOGLOBIN 13.9 g/dl (12.0-16.0); MEAN CORPUSCULAR HGB 30.3 pg (27.0-31.0); MEAN CORPUSCULAR HGB CONC 33.3 g/dl (33.0-37.0); MEAN PLATELET VOLUME 8.9 fl (9.6-12.3); NUCLEATED RED BLOOD CELL 0.1 % (0.0-0.0); PLATELET COUNT AUTOMATED 430 10*3/uL (130-400); RED BLOOD COUNT 4.58 10*6/uL (4.10-5.10); RED CELL DISTRI WIDTH 13.2 % (0-14.5); WHITE BLOOD COUNT 17.5 10*3/uL (4.8-10.8)
[2018-07-11 07:06] LABS: BURR CELLS FEW; PLATELET SUFFICIENCY HIGH (NORMAL); TOTAL CELLS COUNTED 100 #CELLS; VACUOLATION OF NEUTROPHILS MODERATE
[2018-07-11] MEDS ORDERED: SEPTDS PO (08:10)
[2018-07-11] MEDS ORDERED: LEVAQUIN750 M1 PO (08:10)
[2018-07-11] MEDS ORDERED: Ipratropium Brom3 ML NEB (08:10)
[2018-07-11] MEDS ORDERED: ALPRAZOLAM0.5 M3 PO (08:10)
[2018-07-11] MEDS ORDERED: PREDNISONE5 MG PO (08:20)
--- NOTE | 2018-07-11 09:50 | NUR ---
Discharge instructions reviewed with patient/family. Patient receptive and verbalizes understanding. Follow-up care arranged. Written instructions given to patient/family. IV site and groundwater monitoring technician removed. MARTA CALVO
== END 2018-07-11 09:50 | disposition home or self-care (01) | DRG 193 ==
LOC: 4E 14:04
PROVIDERS: ADMIT Internal Medicine
DX: J15.7 Pneumonia due to Mycoplasma pneumoniae (principal); J96.01 Acute respiratory failure with hypoxia; J44.1 Chronic obstructive pulmonary disease with (acute) exacerbation; N39.0 Urinary tract infection, site not specified; R65.10 Systemic inflammatory response syndrome (SIRS) of non-infectious origin without acute organ dysfunction; F33.9 Major depressive disorder, recurrent, unspecified; I10 Essential (primary) hypertension; F41.1 Generalized anxiety disorder; E78.2 Mixed hyperlipidemia; R73.9 Hyperglycemia, unspecified; H91.90 Unspecified hearing loss, unspecified ear; M48.00 Spinal stenosis, site unspecified; F17.210 Nicotine dependence, cigarettes, uncomplicated; B96.20 Unspecified Escherichia coli [E. coli] as the cause of diseases classified elsewhere; Z16.12 Extended spectrum beta lactamase (ESBL) resistance; T38.0X5A Adverse effect of glucocorticoids and synthetic analogues, initial encounter; Y92.89 Other specified places as the place of occurrence of the external cause; Z79.899 Other long term (current) drug therapy

== ENCOUNTER 2020-08-30 14:11 | Emergency (ER) | payer OTHER ==
[~2020-08-30] VITALS: Ht 165.1 cm; Wt 77.1 kg
[~2020-08-30 14:11] MED LIST changes: +Ipratropium Brom3 ML NEB; +LEVAQUIN750 M1 PO; +OXYCODONE HCL10 M1 PO; +PREDNISONE5 MG PO; +SEPTDS PO; +TRAZODONE50 MG PO
[2020-08-30 14:21] VITALS: BP 170/92
[2020-08-30 14:53] LABS: BASO % 0.3 % (0.0-1.0); EOS # 0.1 10*3/uL (0.0-0.4); EOS % 0.9 % (1.0-4.0); HEMATOCRIT 41.8 % (37.0-47.0); LYMPH % 18.8 % (27.0-41.0); MEAN CELL VOLUME 89.9 fl (81.0-99.0); MEAN CORPUSCULAR HGB 31.2 pg (27.0-31.0); MEAN CORPUSCULAR HGB CONC 34.7 g/dl (33.0-37.0); MEAN PLATELET VOLUME 8.9 fl (9.6-12.3); MONO # 0.7 10*3/uL (0.1-1.0); MONO % 4.7 % (3.0-9.0); NEUT # 11.8 10*3/uL (2.3-7.9); NEUT % 74.5 % (47.0-73.0); PLATELET COUNT AUTOMATED 371 10*3/uL (130-400); RED BLOOD COUNT 4.65 10*6/uL (4.10-5.10); RED CELL DISTRI WIDTH 12.9 % (0-14.5); WHITE BLOOD COUNT 15.8 10*3/uL (4.8-10.8)
[2020-08-30 15:10] LABS: ALBUMIN 3.7 gm/dl (3.1-4.5); ALKALINE PHOSPHATASE 114 U/L (45-117); BUN 10 mg/dl (7-24); CHLORIDE 97 mmol/L (98-107); CREATININE 0.65 mg/dL (0.55-1.02); POTASSIUM 4.1 mmol/L (3.5-5.1); SGOT/AST 15 IU/L (3-35); SGPT/ALT 26 U/L (12-78); SODIUM 126 mmol/L (136-145); TOTAL PROTEIN 7.8 gm/dL (6.4-8.2)
[2020-08-30 15:45] LABS: BILIRUBIN Negative (Negative); BLOOD Negative (Negative); CLARITY Cloudy (Clear); COLOR Yellow (Yellow); GLUCOSE Negative (Negative); KETONE Negative (Negative); LEUKO ESTERASE 2+ (Negative); NITRITE Negative (Negative)
[2020-08-30 16:04] LABS: BACTERIA 2+
[2020-08-30] MEDS ORDERED: PYRIDIUM200 M1 PO (16:46)
[2020-08-30] MEDS ORDERED: MACROBID100 M1 PO (16:46)
== END 2020-08-30 17:05 | disposition home or self-care (01) ==
LOC: ED 14:11
PROVIDERS: Nurse Practitioner Family
DX: N39.0 Urinary tract infection, site not specified (principal); I10 Essential (primary) hypertension; F41.9 Anxiety disorder, unspecified; J44.9 Chronic obstructive pulmonary disease, unspecified; E78.00 Pure hypercholesterolemia, unspecified; F17.200 Nicotine dependence, unspecified, uncomplicated; Z86.73 Personal history of transient ischemic attack (TIA), and cerebral infarction without residual deficits; Z88.8 Allergy status to other drugs, medicaments and biological substances; Z79.899 Other long term (current) drug therapy; Z98.890 Other specified postprocedural states

== ENCOUNTER → 2023-05-19 | Outpatient (CLI) | payer OTHER ==
[~2023-05-19] MED LIST changes: +MACROBID100 M1 PO; +PYRIDIUM200 M1 PO
== END | disposition home or self-care (01) ==
LOC: ORTHO 01:11
PROVIDERS: ATTEND Orthopaedic Surgery
DX: M25.512 Pain in left shoulder (principal)

== ENCOUNTER → 2024-05-24 | Outpatient (CLI) | payer OTHER | END | disposition home or self-care (01) | LOC: RAD 16:26 | PROVIDERS: ATTEND Family Medicine | DX: M17.0 Bilateral primary osteoarthritis of knee (principal); M25.561 Pain in right knee; M25.562 Pain in left knee ==

== ENCOUNTER → 2024-12-28 | Outpatient (CLI) | payer OTHER | END | disposition home or self-care (01) | LOC: US 12-14 13:30 | PROVIDERS: ATTEND Family Medicine | DX: I65.23 Occlusion and stenosis of bilateral carotid arteries (principal); H53.9 Unspecified visual disturbance ==